=== PATIENT | female | born 1940 | race Caucasian/White ===

== ENCOUNTER 2024-09-16 10:11 | Emergency (ER) | payer MEDICARE ==
[~2024-09-16] VITALS: Ht 170.2 cm; Wt 70.5 kg
[2024-09-16 10:38] VITALS: TEMP 98.3
[2024-09-16 11:45] VITALS: BP 118/56; PULSE 64; RESP 17; O2SAT 97
== END 2024-09-16 11:59 | disposition home or self-care (01) ==
LOC: EMS 10:20
DX: B07.0 Plantar wart (principal)
CPT/HCPCS: 99281; Z7502